=== PATIENT | female | born 1945 | race Caucasian/White ===

== ENCOUNTER 2023-12-24 12:07 | Outpatient (CLI) | payer MEDICARE, BC ==
[~2023-12-24 12:07] MED LIST: ASPI-529 PO; ATOR40TA PO; CALC-336 PO; CHOL400T57 PO; DENO60DI SUBCUT; ESTR10TA VG; FLAX10007 PO; FLUO20CA39 PO; HYDR-3964 PO; LEVO75TA PO; LORA10TA7 PO; NOR5T PO
[2023-12-24 12:49] LABS: ALBUMIN 3.9 G/DL (3.4-5.0); ANION GAP 8 (8-16); BLOOD UREA NITROGEN 18 MG/DL (7-18); BUN/CREATININE RATIO 28.6 (10.0-20.0); CALCIUM 8.6 MG/DL (8.5-10.1); CHLORIDE 105 MMOL/L (99-107); CREATININE 0.63 MG/DL (0.40-0.90); GLUCOSE 102 MG/DL (70-104); POTASSIUM 3.9 MMOL/L (3.5-5.1); SODIUM 140 MMOL/L (135-145); TOTAL CARBON DIOXIDE 27.1 MMOL/L (24-32); eGFR > 90 ML/MIN
[2023-12-24] MEDS ORDERED: iohexol 350MG/ML 100ml bottle IV ONE (14:34)
== END 2023-12-24 23:59 | disposition home or self-care (01) ==
LOC: RAD 12:07
PROVIDERS: ATTEND Surgery
DX: I65.23 Occlusion and stenosis of bilateral carotid arteries (principal)
CPT/HCPCS: 36415; 70498; 80048; Q9967